=== PATIENT | female | born 1965 | race American Indian/Alaskan Native ===

== ENCOUNTER 2020-02-06 07:42 | Inpatient (IN) | payer OTHER ==
[2020-02-06 08:28] LABS: INR 0.89 (0.87-1.13)
[2020-02-06 08:32] LABS: BUN/Creatinine Ratio 26; Blood Urea Nitrogen 21 mg/dL (7-17); Calcium 9.7 mg/dL (8.4-10.2); Hemolysis Index 8
[2020-02-06] MEDS ORDERED: MIDAZOLAM 2 MG/2 ML INJ ONE (08:57)
[2020-02-06] MEDS ORDERED: fentaNYL 100 MCG/2 ML INJ ONE (08:58)
[2020-02-06] MEDS ORDERED: HEPARIN/NS 5000 UNIT/500ML 1,000 ML IR ONE (08:59)
[2020-02-06] MEDS ORDERED: HEPARIN 10,000 UNITS/10 ML VIAL ONE (09:00)
[2020-02-06] MEDS ORDERED: LIDOCAINE (2%) 20 MG/1 ML VIAL 20 ML MDV INFILTRATI ONE (09:00)
[2020-02-06] MEDS ORDERED: VERAPAMIL 5 MG/2 ML INJ ONE (09:00)
[2020-02-06] MEDS ORDERED: SODIUM CHLORIDE 0.9% 500 ML 500 ML IV SCH (09:00)
[2020-02-06] MEDS ORDERED: ASPIRIN EC 325 MG TAB PO ONE (09:00)
[2020-02-06] MEDS ORDERED: NITROGLYCERIN SYRINGE 0 ML ONE (09:01)
[2020-02-06 09:12] LABS: Basophils % (Auto) 0.6 % (0.0-1.8); Eosinophils # (Auto) 0.1 K/mm3 (0.0-0.4); Eosinophils % (Auto) 2.8 % (0.0-4.3); Hematocrit 41.2 % (30.3-42.9); Hemoglobin 13.3 gm/dl (10.1-14.3); Lymphocytes # (Auto) 1.3 K/mm3 (1.2-5.4); Lymphocytes % (Auto) 39.5 % (13.4-35.0); Mean Corpuscular HGB Conc 32 % (30-34); Mean Corpuscular Volume 83 fl (79-97); Monocytes # (Auto) 0.4 K/mm3 (0.0-0.8); Monocytes % (Auto) 11.4 % (0.0-7.3); Platelet Count 244 K/mm3 (140-440); Red Blood Count 4.97 M/mm3 (3.65-5.03); Red Cell Distribution Width 15.4 % (13.2-15.2)
--- NOTE | 2020-02-06 10:28 | Cardiac Catherization Report ---
CARDIAC CATHETERIZATION REFERRING PHYSICIAN: Dr. Daquan Barbosa INDICATION FOR PROCEDURE: The patient is a very pleasant 54-year-old -Niuean female with a history of hypertension, left bundle branch block, who has been having worsening shortness of breath and chest pain, recent echocardiogram showed [id number] mitral regurgitation, moderate aortic regurgitation, preserved EF. Nuclear perfusion scan was abnormal. LV is mildly dilated. Due to her symptoms, she is referred for right and left heart catheterization as well as root aortography. Risks, benefits, alternatives discussed at length prior to obtaining informed consent. PROCEDURE IN DETAIL: The patient was brought to catheterization lab in a postabsorptive state, prepped and draped in sterile fashion, 8 mL of 2% lidocaine used to anesthetize the right groin. A 5-Kenyan sheath used to cannulate the right common femoral artery via modified Seldinger technique. A standard 6-Kenyan sheath used to cannulate the right femoral vein via modified Seldinger technique. All exchanges performed to exchange a J-tip guidewire. We started with the right heart catheterization. Pulmonary artery catheter placed in the pulmonary capillary wedge position under fluoroscopic guidance. Next, balloon deflated, placed in the pulmonary artery. Sats pressure run performed in the PA, RV, RA, IVC. Next, catheter removed from the body, turned our attention to left heart. A JL4 catheter used to engage the left main. No dampening or ventricularization. Cineangiography performed in all projections. JR4 catheter used to engage the right coronary. No dampening or ventricularization. Cineangiography performed in all projections. Next, pigtail catheter was used to cross the aortic valve under fluoroscopic guidance. Left ventriculography performed with a power injector in the ROSARIO projection. Next, catheter flushed. Manual pullback performed with continuous pressure monitoring. Catheter used for root aortography in the SYRIAN projection with power injector. Next, catheter removed from the body of wire, sheath removed. Pressure for both sheaths removed. There were no immediate complications. I directly supervised the administration of moderate sedation from 9:30 a.m. to 10:04 a.m. No immediate complications. DATA: The patient remained in normal sinus rhythm throughout the procedure. Aortic pressure is 140/80, LV pressure is 140, LVEDP of 20 mmHg. Pulmonary capillary wedge mean pressure is 13. PA mean is 24. RV pressure is 30. RVEDP of 5. RA mean of 5. Cardiac output of 3.9, cardiac index of 1.9. CORONARY ANATOMY: Right dominant coronary system, right coronary is a moderate sized vessel, courses AV groove, distally bifurcates in the posterior and posterolateral branches. Left main without significant disease, bifurcates left anterior descending and left circumflex. Left circumflex, moderate sized vessel, courses AV groove. No significant disease. LAD is a moderate sized vessel, courses anterior intergroove, wraps around the apex, no significant disease. Left ventriculography reveals normal systolic performance with estimated ejection fraction of 55-60% with 3 to 4+ mitral regurgitation. Root aortography reveals normal contour, no evidence of dissection, at least moderate aortic insufficiency is identified. CONCLUSIONS: 1. No angiographic evidence of significant epicardial coronary disease in this right dominant system. 2. Normal left ventricular systolic performance, estimated ejection fraction of 55-60%. Root aortography reveals no evidence of dissection, penetrating aortic ulcer. At least moderate central aortic insufficiency is noted, likely severe central mitral regurgitation is noted. 3. Normal LVEDP. 4. Sinus rhythm throughout. These findings are consistent with ymatketz-[id number] mixed valvular disease. We will set the patient up for outpatient cardiothoracic surgery evaluation for possible elective valve replacement given the patient's symptoms are likely valvular. Results of procedure explained to the patient at length. All questions and concerns were addressed. Discussed with Dr. Leelee Barbosa. Results were also discussed with the patient. Standard groin care. Follow up with us in the office in 2 weeks. JOB# [id number] SBM/NTS
[2020-02-06] MEDS ORDERED: NALOXONE 0.4 MG/1 ML INJ IV ONE (10:30)
[2020-02-06] MEDS ORDERED: flumazeniL 0.5 MG/5 ML INJ IV ONE ×2 (10:35→10:37)
[2020-02-06] MEDS ORDERED: NALOXONE 0.4 MG/1 ML INJ ONE (10:37)
--- NOTE | 2020-02-06 11:17 | Cat Scan Report ---
CT head/brain wo con INDICATION / CLINICAL INFORMATION: 54 years Female; MAIN: CODE STROKE CALL [phone] PT. JUST HAD A HEART CATH REVISION . TECHNIQUE: Routine CT head without contrast. All CT scans at this location are performed using CT dos e reduction for ALARA by means of automated exposure control. COMPARISON: None. FINDINGS: BRAIN / INTRACRANIAL CONTENTS: There is contrast within the intracranial vessels compatible with mike ent's reported history of recent angiography at. There appears be relative effacement of the sulci al idalia the cerebral convexity and mild prominence of the cortex and correlation would be needed regardin g early, subtle ischemic changes involving the right cerebral hemisphere. There is also relative subt le obscuration of the right insular region. However, there appears be contrast opacification within t he visualized right MCA on these images at. The ventricular system is appropriate in size and configuration. ORBITS: No significant abnormality of visualized orbits. SINUSES / MASTOIDS: There is a small retention cyst along the inferior right maxillary sinus. CRANIOCERVICAL JUNCTION: No significant abnormality. ADDITIONAL FINDINGS: None. IMPRESSION: 1. There is subtle effacement of the right cerebral sulci and prominence of the right cerebral cortex as detailed above concerning for early ischemic changes on this post angiographic as CT. The study was specified as code stroke and called emergently to Dr. Barbour at 10:10 AM Central standar d time. Signer Name: Dino Fleming MD Signed: 02/06/2020 11:13 AM Workstation Name: [id number]
[2020-02-06] MEDS ORDERED: ACETAMINOPHEN 325 MG TAB PO PRN (11:20)
[2020-02-06] MEDS ORDERED: ONDANSETRON 4 MG/2 ML INJ IV PRN (11:20)
--- NOTE | 2020-02-06 11:23 | History and Physical Report ---
History of Present Illness Chief complaint: Lethargic History of present illness: 54 YO Female with Obesity, HTN, OA presents to ED for evaluation of chest pain. Patient was taken urgently to the cardiac Gummed Tape Press Operator by the cardiology team. I was notified by the cardiology team in the laborer tanbark that the patient experienced lethargy and weakness after receiving conscious sedation for her cardiac cath. Patient was seen and evaluated and was found to be lethargic with no focal deficit. Patient was given Narcan and flumazenil in the Gummed Tape Press Operator with improvement in symptoms. Patient placed in observation status and admitted to telemetry for further monitoring. Patient denies fever, chills, chest pain, palpitations, productive cough, recent ill contacts, trauma, syncope, seizure, loss of bowel or bladder continence. No reported nursing events. A code stroke was called by the ER staff and tele-neurology was consulted by the ER staff as well. At the time of my evaluation the patient denies any focal deficits and no focal deficits could be localized on exam. CT scan of the head revealed nonspecific findings without definitive evidence of acute CVA. Past History Past Medical History: hypertension, other (See HPI) Past Surgical History: Other (Cardiac cath) Social history: . denies: smoking, alcohol abuse, prescription drug abuse Family history: hypertension Medications and Allergies Allergies Allergy/AdvReac Type Severity Reaction Status Date / Time No Known Allergies Allergy Verified 02/06/20 08:07 Home Medications Medication Instructions Recorded Confirmed Last Taken Type Bumetanide [Bumex 1 mg tab] 1 mg PO DAILY 02/06/20 02/06/20 Unknown History Furosemide [Lasix] 20 mg PO QDAY 02/06/20 02/06/20 02/05/20 History 20 mg Potassium Chloride 10 meq PO DAILY 02/06/20 02/06/20 02/04/20 History 10 meq Active Meds: Active Medications Sodium Chloride (Nacl 0.9% 500 Ml) 500 mls @ 50 mls/hr IV DIRECT LORA Stop: 02/06/20 18:59 Last Admin: 02/06/20 08:44 Dose: 50 mls/hr Documented by: Review of Systems Constitutional: lethargy, no weight loss, no weight gain, no fever, no chills Ears, nose, mouth and throat: no ear pain, no ear discharge, no tinnitis, no decreased hearing Breasts: no change in shape, no swelling, no mass Cardiovascular: no chest pain, no orthopnea, no palpitations, no rapid/irregular heart beat Respiratory: no cough, no cough with sputum, no dyspnea on exertion Gastrointestinal: no nausea, no vomiting, no diarrhea, no constipation, no hematemesis Genitourinary Female: no pelvic pain, no dysuria, no urinary frequency, no urgency Rectal: no pain, no incontinence, no bleeding Musculoskeletal: no neck stiffness, no neck pain, no shooting arm pain, no arm numbness/tingling, no leg numbness/tingling, no redness of joints Integumentary: no rash, no pruritis, no redness, no wounds, no jaundice Neurological: no head injury, no parathesias, no numbness, no tingling, no seizures, no syncope, no migraines, no aphasia, no change in speech, no change in mentation, no confusion, no memory loss, no changes in smell/taste, no gait dysfunction, no motor disturbance, no sensory deficit, no double vision, no loss of vision, no hearing difficulties Psychiatric: no anxiety, no memory loss, no change in sleep habits, no sleep disturbances, no hypersomnia, no change in appetite, no change in libido Endocrine: no cold intolerance, no heat intolerance, no excessive thirst, no p olyuria, no excessive sweating, no flushing Hematologic/Lymphatic: no easy bruising, no easy bleeding, no lymphadenopathy Allergic/Immunologic: no urticaria, no allergic rhinitis, no anaphylaxis, no angioedema Exam - Constitutional Vitals: Temp Pulse Resp BP Pulse Ox 18 // 08:34 General appearance: Present: no acute distress - EENT Eyes: Present: PERRL ENT: hearing intact, clear oral mucosa - Neck Neck: Present: supple, normal ROM - Respiratory Respiratory effort: normal Respiratory: bilateral: CTA - Cardiovascular Heart Sounds: Present: S1 & S2. Absent: rub, click - Extremities Extremities: pulses symmetrical, No edema Peripheral Pulses: within normal limits - Abdominal General gastrointestinal: Present: soft, non-tender, non-distended, normal bowel sounds Female genitourinary: Present: normal - Integumentary Integumentary: Present: clear, warm, dry - Musculoskeletal Musculoskeletal: gait normal, strength equal bilaterally - Psychiatric Psychiatric: appropriate mood/affect, intact judgment & insight - Neurologic Neurologic: CNII-XII intact, moves all extremities Results - Labs CBC & Chem 7: 02/06/20 11:56 02/06/20 11:56 Labs: Abnormal lab results 02/06/20 02/06/20 02/06/20 Range/Units 08:11 08:11 08:11 WBC 3.3 L (4.5-11.0) K/mm3 MCH 27 L (28-32) pg RDW 15.4 H (13.2-15.2) % Lymph % (Auto) 39.5 H (13.4-35.0) % [place] % (Auto) 11.4 H (0.0-7.3) % Seg Neutrophils # 1.5 L (1.8-7.7) K/mm3 PT 11.9 L (12.2-14.9) Sec. BUN 21 H (7-17) mg/dL Glucose 109 H (65-100) mg/dL Assessment and Plan - Patient Problems (1) Lethargy Current Visit: Yes Status: Acute Plan to address problem: CT scan of the head, neuro check, seizure precautions, suspect patient symptoms secondary to conscious sedation. Patient symptoms improved with Narcan, and flumazenil. (2) HTN (hypertension) Current Visit: Yes Status: Chronic Qualifiers: Hypertension type: essential hypertension Qualified Code(s): I10 - Essential (primary) hypertension Plan to address problem: Monitor blood pressure every shift, continue medical management.
--- NOTE | 2020-02-06 11:34 | Consultation ---
History of Present Illness Consult date: 02/06/20 Requesting physician: MANA SCOTT History of present illness: The pt is a 54 YO female with a past medical history of HTN, LBBB who has been having worsening SOB and chest pain, recent echo showed mod-severe MR, mod AR, preserved EF. Nuclear perfusion scan was abnormal, LV mildly dilated. She presented today for scheduled elective right and left heart catheterization as well as root aortography. She underwent RHC and LHC via right groin approach which showed normal coronaries, EF 55-60%, at least moderate central aortic insufficiency, likely severe central MR. Findings c/w mod to severe valvular disease. Pt received conscious sedation throughout procedure (fentanyl and versed) and lidocaine to right groin. Following the procedure, pt was noted to develop altered mental status - somnolence with sluggish response to commands which was thought to be medication related. Pt was given IV narcan and flumazanil with transient minimal improvement in mental status. Code STROKE called. Pt underwent STAT head CT which showed subtle effacement of the right cerebral sulci and prominence of the right cerebral cortex concerning for early ischemic changes. Tele neurology w/u is in progress. Past History Past Medical History: other (as per HPI) Medications and Allergies Allergies Allergy/AdvReac Type Severity Reaction Status Date / Time No Known Allergies Allergy Verified 02/06/20 08:07 Home Medications Medication Instructions Recorded Confirmed Last Taken Type Bumetanide [Bumex 1 mg tab] 1 mg PO DAILY 02/06/20 02/06/20 Unknown History Furosemide [Lasix] 20 mg PO QDAY 02/06/20 02/06/20 02/05/20 History 20 mg Potassium Chloride 10 meq PO DAILY 02/06/20 02/06/20 02/04/20 History 10 meq Active Meds: Active Medications Acetaminophen (Tylenol) 650 mg PO Q4H PRN PRN Reason: Pain MILD(1-3)/Fever >100.5/ALBERTO Sodium Chloride (Nacl 0.9% 500 Ml) 500 mls @ 50 mls/hr IV DIRECT LORA Stop: 02/06/20 18:59 Last Admin: 02/06/20 08:44 Dose: 50 mls/hr Documented by: Ondansetron HCl (Zofran) 4 mg IV Q8H PRN PRN Reason: Nausea And Vomiting Sodium Chloride (Sodium Chloride Flush Syringe 10 Ml) 10 ml IV BID LORA Sodium Chloride (Sodium Chloride Flush Syringe 10 Ml) 10 ml IV PRN PRN PRN Reason: LINE FLUSH Review of Systems ROS unobtainable: due to mental status Physical Examination Vital Signs Resp 18 02/06/20 08:34 General appearance: other (withdrawn, somnolent) HEENT: Positive: PERRL (sluggish) Neck: Positive: neck supple, trachea midline Cardiac: Positive: Reg Rate and Rhythm, S1/S2 Lungs: Positive: Decreased Breath Sounds Neuro: Positive: Other (withdrawn, somnolent) Abdomen: Negative: Tender Skin: Negative: Rash Musculoskeletal: No Pain Extremities: Absent: edema Results 02/06/20 11:56 02/06/20 11:56 Coagulation 02/06/20 02/06/20 Range/Units 08:11 08:11 PT 11.9 L (12.2-14.9) Sec. INR 0.89 (0.87-1.13) APTT 27.0 (24.2-36.6) Sec. CBC 02/06/20 Range/Units 08:11 WBC 3.3 L (4.5-11.0) K/mm3 RBC 4.97 (3.65-5.03) M/mm3 Hgb 13.3 (10.1-14.3) gm/dl Hct 41.2 (30.3-42.9) % Plt Count 244 (140-440) K/mm3 Lymph # 1.3 (1.2-5.4) K/mm3 Kerr # 0.4 (0.0-0.8) K/mm3 Eos # 0.1 (0.0-0.4) K/mm3 Baso # 0.0 (0.0-0.1) K/mm3 Comprehensive Metabolic Panel 02/06/20 Range/Units 08:11 Sodium 142 (137-145) mmol/L Potassium 4.1 (3.6-5.0) mmol/L Chloride 105.3 (98-107) mmol/L Carbon Dioxide 25 (22-30) mmol/L BUN 21 H (7-17) mg/dL Creatinine 0.8 (0.7-1.2) mg/dL Glucose 109 H (65-100) mg/dL Calcium 9.7 (8.4-10.2) mg/dL - Imaging and Cardiology EKG: pending Assessment and Plan Currently stable cardiac status, hemodynamically stable, right groin [place] site c/d/i, no bleeding or hematoma. 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 Neuro w/u in progress. Will follow. The patient has been seen in conjunction with Dr. Robson Barbosa who agrees with the assessment and plan of care. - Patient Problems (1) Acute CVA (cerebrovascular accident) Current Visit: Yes Status: Suspected (2) Aortic insufficiency Current Visit: Yes Status: Chronic (3) Mitral regurgitation Current Visit: Yes Status: Chronic (4) Normal coronary arteries Current Visit: Yes Status: Chronic (5) HTN (hypertension) Current Visit: Yes Status: Chronic (6) LBBB (left bundle branch block) Current Visit: Yes Status: Chronic
--- NOTE | 2020-02-06 11:37 | Consultation ---
History of Present Illness History of present illness: [facility] Date of Service: 02/06/2020 11:00:09 Impression: Left Hemispheric Infarct Comments/Sign-Out: Limited in examination to the right leg due to recent cath with groin puncture. She had a nerve block for the procedure so while she has some mild numbness in her right face and arm the significant numbness in her leg can be otherwise explained. She does not have other focal signs but more globally slow which I suspect is medication related. Suspect a small infarct as the cause of the right face and arm numbness as that can not be explained by medication but I would not recommend tpa at this time for those symptoms alone as she is having rectal bleeding that she occurred this week and was being worked up at [place] but no known cause. Multiple calls to her made to get further history but he was not answering. Discussed with torch solderer who came to bedside. Metrics: Last Known Well: 02/06/2020 10:05:00 [employer] Notification Time: 02/06/2020 10:58:32 Stamp Time: 02/06/2020 11:00:09 Time First Login Attempt: 02/06/2020 11:02:05 Video Start Time: 02/06/2020 11:02:05 Symptoms: altered mental status NIHSS Start Assessment Time: 02/06/2020 11:10:49 Patient is not a candidate for tPA. Patient was not deemed candidate for tPA thrombolytics because of GI Malignancy or GI Bleeding (Within 21 Days). Video End Time: 02/06/2020 11:35:07 CT head showed no acute hemorrhage or acute core infarct. Clinical Presentation is not Suggestive of Large Vessel Occlusive Disease Our recommendations are outlined below. Recommendations: Activate Stroke Protocol Admission/Order Set Stroke/Telemetry Floor Neuro Checks Bedside Swallow Eval DVT Prophylaxis IV Fluids, Normal Saline Head of Bed 30 Degrees Euglycemia and Avoid Hyperthermia (PRN Acetaminophen) Initiate Aspirin 325 MG Daily Routine Consultation with Inhouse Neurology for Follow up Care Sign Out: Discussed with Emergency Department Provider History of Present Illness: Patient is a 54 year old Female. Inpatient stroke alert was called for symptoms of altered mental status 54 yo F with history of htn who presented for a cardiac cath, and had altered mental status. 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 She was opening her mouth to talk and then she wasn't able to. They gave her sedation reversal and she became more alert but was not talking. She had pressure in her head. She was lasting talking normal was around 10:05. Examination: 1A: Level of Consciousness - Alert; keenly responsive + 0 1B: Ask Month and Age - Both Questions Right + 0 1C: Blink Eyes & Squeeze Hands - Performs Both Tasks + 0 2: Test Horizontal Extraocular Movements - Normal + 0 3: Test Visual Lopez - No Visual Loss + 0 4: Test Facial Palsy (Use Grimace if Obtunded) - Normal symmetry + 0 5A: Test Left Arm Motor Drift - No Drift for 10 Seconds + 0 5B: Test Right Arm Motor Drift - No Drift for 10 Seconds + 0 6A: Test Left Leg Motor Drift - No Drift for 5 Seconds + 0 6B: Test Right Leg Motor Drift - No Effort Against [place] + 3 7: Test Limb Ataxia (FNF/Heel-Howell) - No Ataxia + 0 8: Test Sensation - Mild-Moderate Loss: Less Sharp/More Dull + 1 9: Test Language/Aphasia - Normal; No aphasia + 0 10: Test Dysarthria - Normal + 0 11: Test Extinction/Inattention - No abnormality + 0 NIHSS Score: 4 Patient/Family was informed the Neurology Consult would happen via TeleHealth consult by way of interactive audio and video telecommunications and consented to receiving care in this manner. Due to the immediate potential for life-threatening deterioration due to u nderlying acute neurologic illness, I spent 35 minutes providing critical care. This time includes time for face to face visit via telemedicine, review of medical records, imaging studies and discussion of findings with providers, the patient and/or family. Dr Miracle Lemus [employer] Case [id number] Medications and Allergies Allergies Allergy/AdvReac Type Severity Reaction Status Date / Time No Known Allergies Allergy Verified 02/06/20 08:07 Home Medications Medication Instructions Recorded Confirmed Last Taken Type Furosemide [Lasix] 20 mg PO QDAY 02/06/20 02/06/20 02/05/20 History 20 mg Potassium Chloride 10 meq PO DAILY 02/06/20 02/06/20 02/04/20 History 10 meq Active Meds: Active Medications Acetaminophen (Tylenol) 650 mg PO Q4H PRN PRN Reason: Pain MILD(1-3)/Fever >100.5/ALBERTO Sodium Chloride (Nacl 0.9% 500 Ml) 500 mls @ 50 mls/hr IV DIRECT LORA Stop: 02/06/20 18:59 Last Admin: 02/06/20 08:44 Dose: 50 mls/hr Documented by: Ondansetron HCl (Zofran) 4 mg IV Q8H PRN PRN Reason: Nausea And Vomiting Sodium Chloride (Sodium Chloride Flush Syringe 10 Ml) 10 ml IV BID LORA Sodium Chloride (Sodium Chloride Flush Syringe 10 Ml) 10 ml IV PRN PRN PRN Reason: LINE FLUSH Physical Examination - Vital Signs Vital Signs: Vital Signs Resp 18 02/06/20 08:34 Results - Laboratory Findings CBC and BMP: 02/06/20 08:11 02/06/20 08:11 Abnormal Lab Findings: Abnormal Labs 02/06/20 02/06/20 02/06/20 08:11 08:11 08:11 WBC 3.3 L MCH 27 L RDW 15.4 H Lymph % (Auto) 39.5 H [place] % (Auto) 11.4 H Seg Neutrophils # 1.5 L PT 11.9 L BUN 21 H Glucose 109 H
--- NOTE | 2020-02-06 12:11 | Emergency Department Report ---
HPI - General Chief Complaint: Neuro Symptoms/Deficit Time Seen by Provider: 02/06/20 11:55 - HPI HPI: 54-year-old -[place] female presents to the emergency department from the cardiac catheterization lab as a code stroke. The patient has a history of hypertension and a left bundle branch block and was having an elective outpatient cardiac catheterization secondary to some recent shortness of breath and chest pain. Just after the cardiac catheterization, while in postop recovery, the patient began having right-sided numbness and allegedly some aphasia. The patient had a nerve block done for the cardiac catheterization which is most likely the reason for the patient's right leg numbness, but that would not be the reason for the patient's right arm and face numbness or her aphasia. At the time of my examination the patient is awake, oriented and still complains of the right-sided numbness. She does not have any dysarthria but she is slow to respond. However when she responds she is cognizant and lucid. The patient also tells me that she has been having some issues that sound like sleep apnea. She says that she has been set up for a sleep study by Dr. Barbosa later this month. She denies any tobacco, alcohol or illicit drug use. Currently the patient complains of a mild right-sided headache. ED Past Medical Hx - Past Medical History Hx Hypertension: Yes Hx Arthritis: Yes (generalized) Additional medical history: Mitral and tricuspid valve regurgitation - Surgical History Past Surgical History?: No - Social History Smoking Status: Unknown if ever smoked - Medications Home Medications: Home Medications Medication Instructions Recorded Confirmed Last Taken Type Bumetanide [Bumex 1 mg tab] 1 mg PO DAILY 02/06/20 02/06/20 Unknown History Furosemide [Lasix] 20 mg PO QDAY 02/06/20 02/06/20 02/05/20 History 20 mg Potassium Chloride 10 meq PO DAILY 02/06/20 02/06/20 02/04/20 History 10 meq ED Review of Systems ROS: Stated complaint: Other details as noted in HPI Comment: All other systems reviewed and negative Constitutional: denies: chills, fever Eyes: denies: eye pain, vision change ENT: denies: ear pain, throat pain Respiratory: shortness of breath (Resolved). denies: cough Cardiovascular: chest pain (Resolved). denies: palpitations Gastrointestinal: denies: abdominal pain, vomiting Genitourinary: denies: dysuria, discharge Musculoskeletal: denies: back pain, arthralgia Skin: denies: rash, lesions Neurological: headache, numbness Physical Exam - Physical Exam Vital Signs: Vital Signs 02/06/20 02/06/20 08:34 11:45 Temperature 98.7 F Pulse Rate 68 Respiratory 12 Rate Respiratory 18 Rate [Lower Back] Blood Pressure 172/98 O2 Sat by Pulse 99 Oximetry Physical Exam: GENERAL: The patient is well-developed well-nourished. HENT: Normocephalic. Atraumatic. Patient has moist mucous membranes. EYES: Extraocular motions are intact. No nystagmus. NECK: Supple. Trachea is midline. CHEST/LUNGS: Clear to auscultation. There is no respiratory distress noted. HEART/CARDIOVASCULAR: Regular. There is no tachycardia. ABDOMEN: Abdomen is soft, nontender. Patient has normal bowel sounds. SKIN: Skin is warm and dry. NEURO: The patient is awake, alert, and oriented. The patient is cooperative. There is decreased range of motion of the right lower extremity. Subjective decrease sensation to the right face, right arm and right leg when compared to the left. Patient has some mild aphasia and is very slow to respond. MUSCULOSKELETAL: There is no tenderness or deformity. There is no evidence of acute injury. ED Course Vital Signs 02/06/20 02/06/20 08:34 11:45 Temperature 98.7 F Pulse Rate 68 Respiratory 12 Rate Respiratory 18 Rate [Lower Back] Blood Pressure 172/98 O2 Sat by Pulse 99 Oximetry - Consultations Consultation #1: 02/06/20 12:11 The patient was seen by the telemedicine neurologist, Dr. Lemus, as the patient had a CT scan of the head without contrast and afterwards upon arrival to room #2. The CT showed some slight effacement of the right cerebral sulcal eye and cortex that could be concerning for early ischemic changes. The patient was given a NIH stroke scale of 4 but the patient is not a TPA candidate secondary to the cardiac catheterization and some recent alleged rectal bleeding. ED Medical Decision Making - Lab Data Result diagrams: 02/06/20 11:56 02/06/20 11:56 - EKG Data -: EKG Interpreted by Or EKG shows normal: sinus rhythm, axis (Left axis deviation), intervals (Prolonged HI interval), QRS complexes (Left bundle branch block), ST-T waves Rate: bradycardia - EKG Data When compared to previous EKG there are: no significant change Interpretation: unchanged when compared t (02/06/20) - Radiology Data Radiology results: report reviewed CT head/brain wo con INDICATION / CLINICAL INFORMATION: 54 years Female; MAIN: CODE STROKE CALL [phone] PT. JUST HAD A HEART CATH REVISION . TECHNIQUE: Routine CT head without contrast. All CT scans at this location are performed using CT dose reduction for ALARA by means of automated exposure control. COMPARISON: None. FINDINGS: BRAIN / INTRACRANIAL CONTENTS: There is contrast within the intracranial vessels compatible with patient's reported history of recent angiography at. There appears be relative effacement of the sulci along the cerebral convexity and mild prominence of the cortex and correlation would be needed regarding early, subtle ischemic changes involving the right cerebral hemisphere. There is also relative subtle obscuration of the right insular region. However, there appears be contrast opacification within the visualized right MCA on these images at. The ventricular system is appropriate in size and configuration. ORBITS: No significant abnormality of visualized orbits. SINUSES / MASTOIDS: There is a small retention cyst along the inferior right maxillary sinus. CRANIOCERVICAL JUNCTION: No significant abnormality. ADDITIONAL FINDINGS: None. IMPRESSION: 1. There is subtle effacement of the right cerebral sulci and prominence of the right cerebral cortex as detailed above concerning for early ischemic changes on this post angiographic as CT. - Medical Decision Making This patient began having right-sided numbness and some aphasia after completing an elective cardiac catheterization. A code stroke was called and the patient went to have a CT scan of the head without contrast that resulted as showing so me early ischemic changes in the right cerebral sulci and cortex concerning for early CVA. The patient's right leg numbness and weakness may be attributed to the nerve block she received for the catheterization, as well as the catheterization itself. However it should not attribute to the right arm and facial numbness and the aphasia. She was seen by the telemedicine neurologist who gave her a NIH stroke scale of 4. She is not a TPA candidate secondary to the catheterization and previous and/or recent rectal bleeding. The patient's labs were mostly unremarkable. EKG still shows the left bundle branch block without any changes or any morphology consistent with ST elevation [place]. The mike ent will be admitted to the hospital for further evaluation and treatment and was accepted for admission by the hospitalist, Dr. Vega. Critical Care Time: Yes Critical care time in (mins) excluding proc time.: 35 Critical care attestation.: If time is entered above; I have spent that time in minutes in the direct care of this critically ill patient, excluding procedure time. Due to the immediate potential for life-threatening deterioration due to underlying neurologic condition, I spent 35 minutes of critical care time with the patient. Critical Care Time: 35 minutes ED Disposition Clinical Impression: Acute CVA (cerebrovascular accident), Right sided numbness Hypertension Qualifiers: Hypertension type: essential hypertension Qualified Code(s): I10 - Essential (primary) hypertension Disposition: 09 OP ADMIT IP TO THIS HOSP Is pt being admited?: Yes Condition: Serious Time of Disposition: 18:08
[2020-02-06 12:44] LABS: Hematocrit 40.4 % (30.3-42.9); Hemoglobin 13.1 gm/dl (10.1-14.3); Mean Corpuscular HGB Conc 32 % (30-34); Mean Corpuscular Volume 83 fl (79-97); Platelet Count 213 K/mm3 (140-440); Red Blood Count 4.87 M/mm3 (3.65-5.03); Red Cell Distribution Width 15.4 % (13.2-15.2)
[2020-02-06 12:53] LABS: INR 1.08 (0.87-1.13); Partial Thromboplastin Time 29.6 Sec. (24.2-36.6); Thrombin Time 16.9 Sec. (15.1-19.6)
[2020-02-06] MEDS ORDERED: MORPHINE 2 MG/1 ML INJ ONE (12:55)
[2020-02-06] MEDS ORDERED: MORPHINE 2 MG/1 ML INJ IV ONE ×2 (12:55→23:27)
[2020-02-06 13:00] LABS: BUN/Creatinine Ratio 23; Blood Urea Nitrogen 18 mg/dL (7-17); Calcium 9.4 mg/dL (8.4-10.2); Hemolysis Index 4
[2020-02-06 21:08] LABS: Chol/HDL Ratio 2.9 %
--- NOTE | 2020-02-07 08:56 | Progress Note ---
Assessment and Plan Assessment and plan: 54 YO Female with Obesity, HTN, OA presents to ED for evaluation of chest pain. Patient was taken urgently to the cardiac [facility] by the cardiology team. I was notified by the cardiology team in the cathode builder that the patient experienced lethargy and weakness after receiving conscious sedation for her cardiac cath. Patient was seen and evaluated and was found to be lethargic with no focal deficit. Patient was given Narcan and flumazenil in the [facility] with improvement in symptoms. Patient placed in observation status and admitted to telemetry for further monitoring. Patient denies fever, chills, chest pain, palpitations, productive cough, recent ill contacts, trauma, syncope, seizure, loss of bowel or bladder continence. No reported nursing events. A code stroke was called by the ER staff and tele-neurology was consulted by the ER staff as well. At the time of my evaluation the patient denies any focal deficits and no focal deficits could be localized on exam. CT scan of the head revealed nonspecific findings without definitive evidence of acute CVA. 02/07/20 Will obtain an MRI, obtain neurology evaluation. Patient clinically is improved will do bedside swallow evaluation PT OT evaluation and treat continue management per cardiology. ASA. Statin anticipate possible discharge in a.m. based on findings of the MRI and MRA and stroke work-up. Plan of care discussed with the patient. Acute CVA Acute Metabolic Encephalopathy Hyperlipidemia Lethargy HTN Aortic insufficiency Mitral regurgitation History of rheumatic fever as a child Hypertension Left bundle branch block Leukocopenia History Interval history: Follow up: Stroke work up following outpatient Cardiac Patient seen and examined, no new neurological issues reported today. Hospitalist Physical - Physical exam Narrative exam: VITAL SIGNS: Reviewed. GENERAL: The patient appears normally developed, Vital signs as documented. Obese HEAD: No signs of head trauma. EYES: Pupils are equal. Extraocular motions intact. EARS: Hearing grossly intact. MOUTH: Oropharynx is normal. NECK: No adenopathy, no JVD. CHEST: Chest with clear breath sounds bilaterally. No wheezes, rales, or rho nchi. CARDIAC: Regular rate and rhythm. S1 and S2, without murmurs, gallops, or rubs. VASCULAR: No Edema. Peripheral pulses normal and equal in all extremities. ABDOMEN: Soft, non tender and non distended. No rebound or guarding, and no masses palpated. Bowel Sounds normal. MUSCULOSKELETAL: Good range of motion of all major joints. Extremities without clubbing, cyanosis or edema. NEUROLOGIC EXAM: Alert and oriented x 3 No focal sensory or strength deficits motor strength 5/5 speech normal. Follows commands. PSYCHIATRIC: Mood normal. SKIN: detail exam as documented in skin assessment - Constitutional Vitals: Temp Pulse Resp BP Pulse Ox 98.4 F 59 L 18 111/64 98 02/07/20 07:19 02/07/20 07:19 02/07/20 07:19 02/07/20 07:19 02/07/20 07:19 General appearance: Present: no acute distress Results - Labs CBC & Chem 7: 02/06/20 11:56 02/06/20 11:56 Labs: Laboratory Last Values WBC 3.3 K/mm3 (4.5-11.0) L 02/06/20 11:56 RBC 4.87 M/mm3 (3.65-5.03) 02/06/20 11:56 Hgb 13.1 gm/dl (10.1-14.3) 02/06/20 11:56 Hct 40.4 % (30.3-42.9) 02/06/20 11:56 MCV 83 fl (79-97) 02/06/20 11:56 MCH 27 pg (28-32) L 02/06/20 11:56 MCHC 32 % (30-34) 02/06/20 11:56 RDW 15.4 % (13.2-15.2) H 02/06/20 11:56 Plt Count 213 K/mm3 (140-440) 02/06/20 11:56 Lymph % (Auto) 39.5 % (13.4-35.0) H 02/06/20 08:11 [place] % (Auto) 11.4 % (0.0-7.3) H 02/06/20 08:11 Eos % (Auto) 2.8 % (0.0-4.3) 02/06/20 08:11 Baso % (Auto) 0.6 % (0.0-1.8) 02/06/20 08:11 Lymph # 1.3 K/mm3 (1.2-5.4) 02/06/20 08:11 [place] # 0.4 K/mm3 (0.0-0.8) 02/06/20 08:11 Eos # 0.1 K/mm3 (0.0-0.4) 02/06/20 08:11 Baso # 0.0 K/mm3 (0.0-0.1) 02/06/20 08:11 Seg Neutrophils % 45.7 % (40.0-70.0) 02/06/20 08:11 Seg Neutrophils # 1.5 K/mm3 (1.8-7.7) L 02/06/20 08:11 PT 13.8 Sec. (12.2-14.9) 02/06/20 11:56 INR 1.08 (0.87-1.13) 02/06/20 11:56 APTT 29.6 Sec. (24.2-36.6) 02/06/20 11:56 Thrombin Time 16.9 Sec. (15.1-19.6) 02/06/20 11:56 Sodium 139 mmol/L (137-145) 02/06/20 11:56 Potassium 4.1 mmol/L (3.6-5.0) 02/06/20 11:56 Chloride 102.9 mmol/L (98-107) 02/06/20 11:56 Carbon Dioxide 25 mmol/L (22-30) 02/06/20 11:56 Anion Gap 15 mmol/L 02/06/20 11:56 BUN 18 mg/dL (7-17) H 02/06/20 11:56 Creatinine 0.8 mg/dL (0.7-1.2) 02/06/20 11:56 Estimated GFR > 60 ml/min 02/06/20 11:56 BUN/Creatinine Ratio 23 % 02/06/20 11:56 Glucose 97 mg/dL (65-100) 02/06/20 11:56 Calcium 9.4 mg/dL (8.4-10.2) 02/06/20 11:56 Triglycerides 166 mg/dL (2-149) H 02/06/20 20:20 Cholesterol 212 mg/dL (50-199) H 02/06/20 20:20 LDL Cholesterol Direct 125 mg/dL (50-130) 02/06/20 20:20 HDL Cholesterol 73 mg/dL (40-59) H 02/06/20 20:20 Cholesterol/HDL Ratio 2.90 % 06/10/20 20:20 TSH 0.739 mlU/mL (0.270-4.200) 02/06/20 12:01 Vera/IV: Voiding Method Toilet IV Catheter Type [Left INT / Saline Lock Antecubital] Active Medications - Current Medications Current Medications: Generic Name Dose Route Start Last Admin Trade Name Freq PRN Reason Stop Dose Admin Acetaminophen 650 mg 02/06/20 11:20 02/06/20 21:26 Tylenol PO 650 mg Q4H PRN Administration Pain MILD(1-3)/Fever >100.5/ALBERTO Ondansetron HCl 4 mg 02/06/20 11:20 Zofran IV Q8H PRN Nausea And Vomiting Sodium Chloride 10 ml 02/06/20 11:30 02/06/20 21:30 Sodium Chloride Flush Syringe 10 Ml IV 10 ml BID LORA Administration Sodium Chloride 10 ml 02/06/20 11:30 Sodium Chloride Flush Syringe 10 Ml IV PRN PRN LINE FLUSH
--- NOTE | 2020-02-07 10:12 | Progress Note ---
Assessment and Plan Currently stable cardiac status. Neuro w/u in progress - pt for MRI today. Will follow. The patient has been seen in conjunction with Dr. Robson Barbosa who agrees with the assessment and plan of care. - Patient Problems (1) Acute CVA (cerebrovascular accident) Current Visit: Yes Status: Suspected (2) Aortic insufficiency Current Visit: Yes Status: Chronic (3) Mitral regurgitation Current Visit: Yes Status: Chronic (4) Normal coronary arteries Current Visit: Yes Status: Chronic (5) HTN (hypertension) Current Visit: Yes Status: Chronic Qualifiers: Hypertension type: essential hypertension Qualified Code(s): I10 - Essential (primary) hypertension (6) LBBB (left bundle branch block) Current Visit: Yes Status: Chronic Subjective Date of service: 02/07/20 Principal diagnosis: ? CVA Interval history: pt resting comfortably in bed, A&O, no current cardiac complaints. got OOB overnight, still has some RLE weakness and RUE numbness. tele reviewed - in SR with no acute events overnight. Objective Last Vital Signs Temp 98.4 F 02/07/20 07:19 Pulse 59 L 02/07/20 07:19 Resp 18 02/07/20 07:19 BP 111/64 02/07/20 07:19 Pulse Ox 98 02/07/20 07:19 - Physical Examination General: No Apparent Distress HEENT: Positive: PERRL Neck: Positive: neck supple, trachea midline Cardiac: Positive: Reg Rate and Rhythm, S1/S2 Lungs: Positive: Decreased Breath Sounds Neuro: Positive: Grossly Intact Abdomen: Negative: Tender Skin: Negative: Rash Incision: Cardiac Cath Site (right groin LHC site c/d/i, no bleeding or hematoma) Musculoskeletal: No Pain Extremities: Absent: edema - Labs and Meds Coagulation 02/06/20 Range/Units 11:56 PT 13.8 (12.2-14.9) Sec. INR 1.08 (0.87-1.13) APTT 29.6 (24.2-36.6) Sec. Lipids 02/06/20 Range/Units 20:20 Triglycerides 166 H (2-149) mg/dL Cholesterol 212 H (50-199) mg/dL HDL Cholesterol 73 H (40-59) mg/dL Cholesterol/HDL Ratio 2.90 % CBC 02/06/20 Range/Units 11:56 WBC 3.3 L (4.5-11.0) K/mm3 RBC 4.87 (3.65-5.03) M/mm3 Hgb 13.1 (10.1-14.3) gm/dl Hct 40.4 (30.3-42.9) % Plt Count 213 (140-440) K/mm3 Comprehensive Metabolic Panel 02/06/20 Range/Units 11:56 Sodium 139 (137-145) mmol/L Potassium 4.1 (3.6-5.0) mmol/L Chloride 102.9 (98-107) mmol/L Carbon Dioxide 25 (22-30) mmol/L BUN 18 H (7-17) mg/dL Creatinine 0.8 (0.7-1.2) mg/dL Glucose 97 (65-100) mg/dL Calcium 9.4 (8.4-10.2) mg/dL - Imaging and Cardiology EKG: report reviewed, image reviewed - Telemetry EKG Rhythm: Sinus Rhythm
[2020-02-07] MEDS ORDERED: LORazepam 2 MG/ML VIAL IV ONE ×2 (10:50→11:00)
[2020-02-07] MEDS ORDERED: LORazepam 2 MG/ML VIAL IV PRN (10:55)
[2020-02-07] MEDS: ASPIRIN 325 MG TAB PO SCH (11:22)
--- NOTE | 2020-02-07 14:48 | Magnetic Resonance Report ---
MRA HEAD WITHOUT CONTRAST HISTORY: Right-sided numbness COMPARISON: None. TECHNIQUE: Routine MRA of the head is performed. 3-D/MIP reformats postprocessed. CONTRAST: None. FINDINGS: Intracranial vertebral arteries: No significant abnormality. Basilar artery: No significant abnormality. Posterior cerebral arteries: No significant abnormality. Posterior communicating artery contributing to right posterior cerebral artery Intracranial internal carotid arteries: No significant abnormality. Anterior cerebral arteries: No significant abnormality. Middle cerebral arteries: No significant abnormality. Variants and anomalies:None Additional findings: None. IMPRESSION: No significant abnormality. Signer Name: Tiffanie Zurita MD Signed: 02/07/2020 2:43 PM Workstation Name: [id number]
--- NOTE | 2020-02-07 14:50 | Magnetic Resonance Report ---
MRA NECK WITHOUT CONTRAST HISTORY: Weakness COMPARISON: None. TECHNIQUE: Routine MRA of the neck was performed. 3-D/MIP reformats postprocessed. Percentage stenos is is determined by direct quantitative measurements of distal internal carotid artery diameter ann marie red with normal reference segments or by criteria similar to NASCET where applicable. CONTRAST: None. FINDINGS: Aortic arch: Not adequately visualized Cervical vertebral arteries: Normal in the foraminal, extraspinal segments Common carotid arteries: No significant abnormality. Carotid bifurcations: No significant abnormality Cervical internal carotid arteries: No significant abnormality. Additional findings: None. IMPRESSION: 1. No significant abnormality. Signer Name: Tiffanie Zurita MD Signed: 02/07/2020 2:46 PM Workstation Name: [id number]
--- NOTE | 2020-02-07 14:54 | Magnetic Resonance Report ---
NONENHANCED MR SCAN OF THE BRAIN: INDICATION / CLINICAL INFORMATION: MAIN: CVA, RIGHT SIDED NUMBNESS. TECHNIQUE: Multiplanar, multisequence MR images of the brain obtained. COMPARISON: CT scan of the head 02/06/2020 FINDINGS: BRAIN / INTRACRANIAL CONTENTS: No acute ischemia, acute hemorrhage, mass effect, midline shift, or hy drocephalus. No chronic infarct or atrophy. No significant white matter abnormality. CRANIOCERVICAL JUNCTION: No significant abnormality. VASCULAR FLOW-VOIDS: No significant abnormality. ORBITS: No significant abnormality of visualized orbits. SINUSES / MASTOIDS: Retention cyst in the left sphenoid sinus ADDITIONAL FINDINGS: Trace effusion in the left TMJ IMPRESSION: 1. No focal acute parenchymal lesion in the brain Signer Name: Tiffanie Zurita MD Signed: 02/07/2020 2:50 PM Workstation Name: [id number]
--- NOTE | 2020-02-07 16:34 | Consultation ---
History of Present Illness Consult date: 02/07/20 Reason for Consult: Lethargy following cardiac catheterization Chief complaint: Lethargy following cardiac catheterization History of present illness: Patient is a 54 y/o woman w/ a h/o HTN, obesity. Yesterday, patient underwent a cardiac catheterization, after which she was noted to be lethargic. She was given narcan, after which mental status slightly improved. She was then brought to ER for further evaluation. She was deemed not to be a tPA candidate per teleneurology evaluation in ER. Mental status has improved today, however patient states that she still feels slight numbness on right face/arm/leg, as well as right leg weakness. Patient had local lidocaine injection prior to procedure. Past History Past Medical History: hypertension, other (See HPI) Past Surgical History: Other (Cardiac cath) Social history: . denies: smoking, alcohol abuse, prescription drug abuse Family history: hypertension Medications and Allergies Allergies Allergy/AdvReac Type Severity Reaction Status Date / Time No Known Allergies Allergy Verified 02/06/20 08:07 Home Medications Medication Instructions Recorded Confirmed Last Taken Type Bumetanide [Bumex 1 mg tab] 1 mg PO DAILY 02/06/20 02/06/20 Unknown History Furosemide [Lasix] 20 mg PO QDAY 02/06/20 02/06/20 02/05/20 History 20 mg Potassium Chloride 10 meq PO DAILY 02/06/20 02/06/20 02/04/20 History 10 meq Active Meds: Active Medications Acetaminophen (Tylenol) 650 mg PO Q4H PRN PRN Reason: Pain MILD(1-3)/Fever >100.5/ALBERTO Last Admin: 02/06/20 21:26 Dose: 650 mg Documented by: Aspirin (Aspirin) 325 mg PO QDAY [facility] Last Admin: 02/07/20 11:22 Dose: 325 mg Documented by: Atorvastatin Calcium (Lipitor) 40 mg PO QHS [facility] Lorazepam (Ativan) 2 mg IV ONCE PRN PRN Reason: Anxiety Stop: 02/08/20 10:54 Ondansetron HCl (Zofran) 4 mg IV Q8H PRN PRN Reason: Nausea And Vomiting Sodium Chloride (Sodium Chloride Flush Syringe 10 Ml) 10 ml IV BID [facility] Last Admin: 02/07/20 11:23 Dose: 10 ml Documented by: Sodium Chloride (Sodium Chloride Flush Syringe 10 Ml) 10 ml IV PRN PRN PRN Reason: LINE FLUSH Review of Systems All systems: negative Neurological: weakness, numbness, change in mentation Physical Examination - Vital Signs Vital Signs: Vital Signs Resp 18 02/06/20 08:34 - Physical Exam Narrative exam: Patient is alert, awake, oriented x4, follows complex commands. No dysarthria or aphasia noted. PERRL, EOMI, VFF, tongue midline, decreased on Right to to LT, no facial weakness noted. 5/5 strength in b/l UE, RLE 2/5, LLE 3/5. Decreased on Right UE/LE to light touch. Bilaterally intact to FTN and HTS, however slowed response. - Constitutional General appearance: comfortable - Level of Consciousness 1a. Level of Consciousness: alert/keenly responsive - LOC Questions 1b. LOC Questions: answers both correctly - LOC Command 1c. LOC Commands: performs tasks correctly - Best Gaze 2. Best Gaze: normal - Visual 3. Visual: no visual loss - Facial Palsy 4. Facial Palsy: normal symmetrical movement - Motor Arm 5a. Motor Arm Left: no drift 5b. Motor Arm Right: no drift - Motor Leg 6a. Motor Leg Left: drift 6b. Motor Leg Right: some gravity effort - Limb Ataxia 7. Limb Ataxia: absent - Sensory 8. Sensory: mild/moderate sensory loss - Best Language 9. Best Language: no aphasia - Dysarthria 10. Dysarthria: normal - Extinction and Inattention 11. Extinction/Inattention: no abnormality - Scoring Total Score: 4 Stroke Severity: Minor Stroke Results - Laboratory Findings CBC and BMP: 02/06/20 11:56 02/06/20 11:56 Abnormal Lab Findings: Abnormal Labs 02/06/20 02/06/20 02/06/20 08:11 08:11 08:11 WBC 3.3 L MCH 27 L RDW 15.4 H Lymph % (Auto) 39.5 H Roberts % (Auto) 11.4 H Seg Neutrophils # 1.5 L PT 11.9 L BUN 21 H Glucose 109 H Triglycerides Cholesterol HDL Cholesterol 02/06/20 02/06/20 02/06/20 11:56 11:56 20:20 WBC 3.3 L MCH 27 L RDW 15.4 H Lymph % (Auto) Roberts % (Auto) Seg Neutrophils # PT BUN 18 H Glucose Triglycerides 166 H Cholesterol 212 H HDL Cholesterol 73 H Assessment and Plan Patient is a 54 y/o woman w/ a h/o HTN, obesity, who p/w lethargy and right sided weakness/numbness after cardiac catheterization. According to the patient's clinical findings, there is no radiologic evidence of a stroke, as no infarct is noted on MRI. CT head showed questionable area of hypdensity in right insular region, however this was not correlated with any abnormality on MRI, and furthermore, patient's symptoms are involving Right face, arm, and leg, and therefore would not be explained by an infarct in the right insular cortex. Therefore, it may be possible that lethargy was more likely due to medication side effect, as cardiology team also mentioned that patient stated she has a history increased susceptibility to sedation. Alternatively, patient may have conversion d/o, as cardiology team mentioned that patient stated she may have a h/o psychiatric d/o. Plan: 1. Medication side effect (causing lethargy) vs. conversion d/o: - MRI brain: No acute abnormalities. - MRA head/neck: No significant stenosis of occlusion. - CT head: questionable area of hypodensity in right insular cortex. - Echo: Pending - Further antiplatelet and anti-coagulation to be indicated per cardiology. - Telemetry monitoring while in house - PT/OT - DVT Ppx: Recommend lovenox - Plan of care discussed with cardiology team and primary team. 2. Hypertension: - Recommend BP goal of normotension, as no infarct is noted on MRI. - Will continue to monitor patient. Thank you for allowing me to take part in the care of this patient. Eliseo Graham MD Neurology This clinical encounter was provided via live telemedicine platform. Consultative service was provided for neurology to support local providers. The Acute Teleneurology team should be contacted with any neurologic worsening or clinical changes, new test results, or new patient history that is reported to or discovered by the local team following completion of the teleneurology consultation, specifically that which has the potential to impact the consultative recommendations. Patient/Family was informed the Neurology Consult would happen via TeleHealth consult by way of interactive audio and video telecommunications and consented to receiving care in this manner. Due to the potential for life-threatening deterioration due to underlying neurologic illness, and limited resources available for patient care, telemedicine was used as means of patient care. Telemedicine consultation is limited in the extent of physical exam that can be virtually provided. Time spent evaluating patient includes time for face to face visit via telemedicine, review of medical records, imaging studies and discussion of findings with providers, the patient and/or family.
[2020-02-08 06:20] VITALS: BP 123/69
--- NOTE | 2020-02-08 10:13 | Progress Note ---
Assessment and Plan tte reviewed - EF 45-50%, mild LVH, LV mildly dilated, impaired relaxation, mod AR, mod to severe MR. Per neurology, pt with edication side effect (causing lethargy) vs. conversion d/o, MRI brain: No acute abnormalities. MRA head/neck: No significant stenosis of occlusion. CT head: questionable area of hypodensity in right insular cortex. Currently stable cardiac status. Pt may discharge from cardiology standpoint. Follow up video visit at [place] with Dr. Beltre on 02/12/2020 @ 12:30PM. Recommend follow up in our office with Dr. GINA Barbosa within 2 weeks ([phone]). The patient has been seen in conjunction with Dr. Robson Barbosa who agrees with the assessment and plan of care. - Patient Problems (1) Acute CVA (cerebrovascular accident) Current Visit: Yes Status: Suspected Plan to address problem: ruled out (2) Aortic insufficiency Current Visit: Yes Status: Chronic (3) Mitral regurgitation Current Visit: Yes Status: Chronic (4) Normal coronary arteries Current Visit: Yes Status: Chronic (5) HTN (hypertension) Current Visit: Yes Status: Chronic Qualifiers: Hypertension type: essential hypertension Qualified Code(s): I10 - Essential (primary) hypertension (6) LBBB (left bundle branch block) Current Visit: Yes Status: Chronic Subjective Date of service: 02/08/20 Principal diagnosis: ? CVA Interval history: pt resting comfortably in bed, A&O, no current complaints. in SR on tele, no acute events overnight. Objective Last Vital Signs Temp 98.3 F 02/08/20 04:00 Pulse 68 02/08/20 04:39 Resp 18 02/08/20 08:12 BP 123/69 02/08/20 04:00 Pulse Ox 95 02/08/20 08:49 - Physical Examination General: No Apparent Distress HEENT: Positive: PERRL Neck: Positive: neck supple, trachea midline Cardiac: Positive: Reg Rate and Rhythm, S1/S2 Lungs: Positive: Decreased Breath Sounds Neuro: Positive: Grossly Intact Abdomen: Negative: Tender Skin: Negative: Rash Incision: Cardiac Cath Site (right groin LHC site c/d/i, no bleeding or hematoma) Musculoskeletal: No Pain Extremities: Absent: edema - Imaging and Cardiology EKG: report reviewed, image reviewed Echo: report reviewed - Telemetry EKG Rhythm: Sinus Rhythm
[2020-02-08] MEDS: ASPIRIN 325 MG TAB PO SCH (11:26)
--- NOTE | 2020-02-08 12:00 | Progress Note ---
Assessment and Plan Patient is a 54 y/o woman w/ a h/o HTN, obesity, who p/w lethargy and right sided weakness/numbness after cardiac catheterization. According to the patient's clinical findings, there is no radiologic evidence of a stroke, as no infarct is noted on MRI. CT head showed questionable area of hypdensity in right insular region, however this was not correlated with any abnormality on MRI, and furthermore, patient's symptoms are involving Right face, arm, and leg, and therefore would not be explained by an infarct in the right insular cortex. Therefore, it may be possible that lethargy was more likely due to medication side effect, as cardiology team also mentioned that patient stated she has a history increased susceptibility to sedation. Alternatively, patient may have conversion d/o, as patient stated that she was under increased stress recently due to personal matters. Plan: 1. Conversion d/o, Medication side effect (causing lethargy): - MRI brain: No acute abnormalities. - MRA head/neck: No significant stenosis of occlusion. - CT head: questionable area of hypodensity in right insular cortex. - Echo: EF 45-50%, LA normal size, bubble study negative. - Further antiplatelet and anti-coagulation to be indicated per cardiology. - Telemetry monitoring while in house - PT/OT - DVT Ppx: Recommend lovenox - Plan of care discussed with cardiology team and primary team. - Recommend outpatient psychiatry evaluation, as patient states that she has been under increased amounts of stress recently, as she was left out of her father's inheritance, and also has other stressors in remote past. 2. Hypertension: - Recommend BP goal of normotension, as no infarct is noted on MRI. - Will sign off, as I am not covering neurology service over the weekend. Please consult neurologist covering the service over the weekend for further neurologic monitoring and management. Thank you for allowing me to take part in the care of this patient. Eliseo Graham MD Neurology This clinical encounter was provided via live telemedicine platform. Consultative service was provided for neurology to support local providers. The Acute Teleneurology team should be contacted with any neurologic worsening or clinical changes, new test results, or new patient history that is reported to or discovered by the local team following completion of the teleneurology consultation, specifically that which has the potential to impact the con sultative recommendations. Patient/Family was informed the Neurology Consult would happen via TeleHealth consult by way of interactive audio and video telecommunications and consented to receiving care in this manner. Due to the potential for life-threatening deterioration due to underlying neurol ogic illness, and limited resources available for patient care, telemedicine was used as means of patient care. Telemedicine consultation is limited in the extent of physical exam that can be virtually provided. Time spent evaluating patient includes time for face to face visit via telemedicine, review of medical records, imaging studies and discussion of findings with providers, the patient and/or family. Subjective Date of service: 02/08/20 Principal diagnosis: Conversion disorder, medication adverse effect Interval history: Patient feeling better today. Feels less lethargic, and states that gait is improving as well, with less imbalance. No acute events overnight. Objective - Exam Narrative Exam: Patient is alert, awake, oriented x4, follows complex commands. No dysarthria or aphasia noted. PERRL, EOMI, VFF, tongue midline, decreased on Right to to LT, no facial weakness noted. 5/5 strength in b/l UE, RLE 3/5, LLE 4/5. Decreased on Right UE/LE to light touch. Bilaterally intact to FTN and HTS. - Vital Sign Vital Signs - 12hr 02/08/20 02/08/20 02/08/20 00:52 04:00 04:39 Temperature 98.3 F Pulse Rate 91 H 63 68 Respiratory 18 Rate Respiratory Rate [Lower Back] Blood Pressure 123/69 [Right] O2 Sat by Pulse 93 100 Oximetry 02/08/20 02/08/20 08:12 08:49 Temperature Pulse Rate Respiratory Rate Respiratory 18 Rate [Lower Back] Blood Pressure [Right] O2 Sat by Pulse 95 Oximetry - General Apperance Constitutional: comfortable - Laboratory Findings CBC and BMP: 02/06/20 11:56 02/06/20 11:56 Abnormal Lab Findings: Abnormal Labs 02/06/20 02/06/20 02/06/20 08:11 08:11 08:11 WBC 3.3 L MCH 27 L RDW 15.4 H Lymph % (Auto) 39.5 H [place] % (Auto) 11.4 H Seg Neutrophils # 1.5 L PT 11.9 L BUN 21 H Glucose 109 H Triglycerides Cholesterol HDL Cholesterol 06/06/1702/06/20 02/06/20 11:56 11:56 20:20 WBC 3.3 L MCH 27 L RDW 15.4 H Lymph % (Auto) Ing[place] % (Auto) Seg Neutrophils # PT BUN 18 H Glucose Triglycerides 166 H Cholesterol 212 H HDL Cholesterol 73 H
--- NOTE | 2020-02-08 12:11 | Discharge Summary ---
Providers - Providers Date of Admission: 02/07/20 08:57 Attending physician: CARI SALMON MD 02/07/20 08:53 Consult to Physician [CONS] Routine Comment: Consulting Provider: YAO SCHUMACHER Physician Instructions: Reason For Exam: cva 02/07/20 08:56 Occupational Therapy Evaluate and Treat [CONS] Routine Comment: Reason For Exam: cva Physical Therapy Evaluation and Treat [CONS] Routine Comment: Reason For Exam: cva Primary care physician: [facility] Hospitalization Reason for admission: Altered mental status Condition: Serious Hospital course: 54 YO Female with Obesity, HTN, OA presents to ED for evaluation of chest pain. Patient was taken urgently to the cardiac [facility] by the cardiology team. I was notified by the cardiology team in the laboratory chief that the patient experienced lethargy and weakness after receiving conscious sedation for her cardiac cath. Patient was seen and evaluated and was found to be lethargic with no focal deficit. Patient was given Narcan and flumazenil in the [facility] [facility] with improvement in symptoms. Patient placed in observation status and admitted to telemetry for further monitoring. Patient denies fever, chills, chest pain, palpitations, productive cough, recent ill contacts, trauma, syncope, seizure, loss of bowel or bladder continence. No reported nursing events. A code stroke was called by the ER staff and tele-neurology was consulted by the ER staff as well. At the time of my evaluation the patient denies any focal deficits and no focal deficits could be localized on exam. CT scan of the head revealed nonspecific findings without definitive evidence of acute CVA. 02/07/20 Will obtain an MRI, obtain neurology evaluation. Patient clinically is improved will do bedside swallow evaluation PT OT evaluation and treat continue management per cardiology. ASA. Statin anticipate possible discharge in a.m. based on findings of the MRI and MRA and stroke work-up. Plan of care discussed with the patient. MRI obtained and MRA did not confirm any acute abnormalities no significant stenosis of occlusion or acute CVA. The CT of the head questionable area of hypodensity in the right insular cortex according to the neurology was not consistent with CVA considering MRI findings. Patient is clinically stable blood pressure controlled and stable for discharge Conversion disorder Lethargy secondary to medication side effect Acute Metabolic Encephalopathy Hyperlipidemia Lethargy HTN Aortic insufficiency Mitral regurgitation History of rheumatic fever as a child Hypertension Left bundle branch block Leukocopenia Disposition: DC/TX-06 HOME [facility]ER [facility] Time spent for discharge: 35 mins Core Measure Documentation - Palliative Care Palliative Care/ Comfort Measures: Not Applicable - Core Measures Any of the following diagnoses?: none Exam - Physical Exam Narrative exam: VITAL SIGNS: Reviewed. GENERAL: The patient appears normally developed, Vital signs as documented. Obese HEAD: No signs of head trauma. EYES: Pupils are equal. Extraocular motions intact. EARS: Hearing grossly intact. MOUTH: Oropharynx is normal. NECK: No adenopathy, no JVD. CHEST: Chest with clear breath sounds bilaterally. No wheezes, rales, or rhonchi. CARDIAC: Regular rate and rhythm. S1 and S2, without murmurs, gallops, or rubs. VASCULAR: No Edema. Peripheral pulses normal and equal in all extremities. ABDOMEN: Soft, non tender and non distended. No rebound or guarding, and no masses palpated. Bowel Sounds normal. MUSCULOSKELETAL: Good range of motion of all major joints. Extremities without clubbing, cyanosis or edema. NEUROLOGIC EXAM: Alert and oriented x 3 No focal sensory or strength deficits motor strength 5/5 speech normal. Follows commands. PSYCHIATRIC: Mood normal. SKIN: detail exam as documented in skin assessment - Constitutional Vitals: Temp Pulse Resp BP Pulse Ox 98.3 F 68 18 123/69 95 02/08/20 04:00 02/08/20 04:39 02/08/20 08:12 02/08/20 04:00 02/08/20 08:49 Plan Activity: advance as tolerated, fall precautions Diet: low cholesterol, low salt Special Instructions: record daily weights, record daily BP diary, physical therapy, occupational therapy, home health RN Additional Instructions: Follow up video visit at [place] with Dr. Beltre on 02/12/2020 @ 12:30PM. Recommend follow up in our office with Dr. GINA Enamorado within 2 weeks ([phone]). Follow up with: JOEY BLAIR MD [Staff Physician] - 7 Days [facility] [Primary Care Provider] - 3-5 Days NARENDRA ENAMORADO MD [Staff Physician] - 7 Days Prescriptions: RX: AtorvaSTATin [Lipitor] 40 mg PO QHS #30 tablet RX: Aspirin [Aspirin BABY CHEW TAB] 81 mg PO QDAY #30 tab.chew
[2020-02-09] MEDS ORDERED: ASPIRIN 81 MG TAB CHEW PO SCH (10:00)
== END 2020-02-08 14:30 | disposition home health service (06) | DRG 72 ==
LOC: CATHLABREC 07:42 → ED 07:42 → 4A 08:57 → EDSTATUS 09:30 → 4A 11:20 → OBSVTOIN 02-07 08:57
PROVIDERS: ADMIT Internal Medicine; ATTEND Internal Medicine
PROC: 4A023N8 Measurement of Cardiac Sampling and Pressure, Bilateral, Percutaneous Approach (ICD-10-PCS; principal; 2020-02-06)
PROC: B2111ZZ Fluoroscopy of Multiple Coronary Arteries using Low Osmolar Contrast (ICD-10-PCS; 2020-02-06)
PROC: B3101ZZ Fluoroscopy of Thoracic Aorta using Low Osmolar Contrast (ICD-10-PCS; 2020-02-06)
PROC: B2151ZZ Fluoroscopy of Left Heart using Low Osmolar Contrast (ICD-10-PCS; 2020-02-06)
DX: G93.41 Metabolic encephalopathy (principal); T42.75XA Adverse effect of unspecified antiepileptic and sedative-hypnotic drugs, initial encounter; I44.7 Left bundle-branch block, unspecified; I35.1 Nonrheumatic aortic (valve) insufficiency; R53.83 Other fatigue; I10 Essential (primary) hypertension; E66.9 Obesity, unspecified; E78.5 Hyperlipidemia, unspecified; D72.819 Decreased white blood cell count, unspecified; M19.90 Unspecified osteoarthritis, unspecified site; Z68.34 Body mass index [BMI] 34.0-34.9, adult; Z82.49 Family history of ischemic heart disease and other diseases of the circulatory system; Z79.899 Other long term (current) drug therapy
CPT/HCPCS: 36415; 70450; 70544; 70547; 70551; 80048; 80061; 82962; 84443; 85025; 85027; 85610; 85670; 85730; 93005; 93306; 93460; 93567; 96374; 96375; G0378; A9270-GY; C1894; J1644; J2060; J2250; J2270; J2310; J3010; J7040; Q9967

== ENCOUNTER 2020-02-27 06:37 | Outpatient (CLI) | payer OTHER ==
[2020-02-27] MEDS ORDERED: SODIUM CHLORIDE 0.9% 1000 ML 1,000 ML IV SCH (07:45)
--- NOTE | 2020-02-27 07:55 | Anesthesia Consultation ---
Anesthesia Consult and Med Hx Date of service: 02/27/20 - Airway Anesthetic Teeth Evaluation: Good (some misssing teeth, 3 teeth were pulled out 2 days ago), Caps (few dyson caps) ROM Head & Neck: Adequate Mental/Hyoid Distance: Adequate Mallampati Class: Class III Intubation Access Assessment: Possibly Difficult - Pre-Operative Health Status ASA Pre-Surgery Classification: ASA3 Proposed Anesthetic Plan: MAC - Pulmonary Hx Asthma: No SOB: Yes COPD: No Hx Pneumonia: No - Cardiovascular System Hx Hypertension: Yes Hx Valvular Heart Disease: Yes (AI and MR requiring surgery) - Central Nervous System CVA: Yes (had TIA during cardiac cath) Hx Back Pain: Yes Hx Psychiatric Problems: No - Endocrine Hx End Stage Renal Disease: No - Other Systems Hx Cancer: No Hx Obesity: Yes (BMI 36.3)
[2020-02-27] MEDS ORDERED: BENZOCAINE 20% TOP SPRAY 0.5 ML UNIT DOSE MM NR (08:00)
--- NOTE | 2020-02-27 08:02 | Anesthesia Day of Surgery ---
Anesthesia Day of Surgery - Day of Surgery Patient Examined: Yes Patient H&P Reviewed: Yes Patient is NPO: Yes
[2020-02-27] MEDS ORDERED: SODIUM CHLORIDE 0.9% 500 ML 0 ML ONE (08:04)
[2020-02-27] MEDS ORDERED: propofoL 200 MG/20 ML VIAL IV ONE (08:07)
[2020-02-27] MEDS ORDERED: SODIUM CHLORIDE 0.9% 1000 ML 1,000 ML ONE (08:08)
[2020-02-27] MEDS ORDERED: BENZOCAINE 20% TOP SPRAY 0.5 ML UNIT DOSE MM ONE (08:20)
[2020-02-27] MEDS ORDERED: LIDOCAINE MPF (2%) 20 MG/1 ML VIAL 5 ML ONE (09:12)
[2020-02-27 11:00] VITALS: BP 119/65
--- NOTE | 2020-02-27 13:16 | Post Anesthesia Evaluation ---
- Post Anesthesia Evaluation Patient Participated: Yes Airway Patent: Yes Stable Respiratory Function: Yes Nausea/Vomiting: No Temp > 96.8F: Yes Pain Manageable: Yes Adequeate Hydration: Yes Anesthesia Complications: No
== END 2020-02-27 11:15 | disposition home or self-care (01) ==
LOC: CATHLABREC 06:37 → ECHO 06:37 → CATHLABREC 11:15
PROVIDERS: ATTEND Internal Medicine
DX: I08.0 Rheumatic disorders of both mitral and aortic valves (principal); I70.0 Atherosclerosis of aorta; I10 Essential (primary) hypertension; E66.9 Obesity, unspecified; Z90.710 Acquired absence of both cervix and uterus; M19.90 Unspecified osteoarthritis, unspecified site; Z98.890 Other specified postprocedural states; Z68.36 Body mass index [BMI] 36.0-36.9, adult; Z79.899 Other long term (current) drug therapy; Z79.82 Long term (current) use of aspirin; Z86.73 Personal history of transient ischemic attack (TIA), and cerebral infarction without residual deficits
CPT/HCPCS: 93312; 93320; 93325; J2704; J7030; J7040